=== PATIENT | male | born 1980 | race Two or more races ===

== ENCOUNTER 2023-11-09 12:13 | Inpatient (IN) | payer OTHER ==
[~2023-11-09] VITALS: Ht 152.4 cm; Wt 108.9 kg
--- NOTE | 2023-11-09 12:53 | NUR ---
PACIENTE ALERTA Y ORIENTADO X3. REFIERE VENIR ENDURECIMIENTO EN GLUTEO DERECHO Y DOLOR DESDE HACE OCHO APONTE. LO ESTABAN TRATANDO BRYNN PARA HEMORROIDES. PACIENTE PRESENTA ABSCESO EN EL GLUTEO DERECHO, AREA CALIENTE AL TACTO Y ENDURECIDA.
[2023-11-09] MEDS ORDERED: PIPERACILLIN/TAZOBACTAM SODIUM 3.375 GM in 0.9 % SODIUM CHLORIDE 100 ML IV SCH (13:31)
[2023-11-09] MEDS ORDERED: 0.9 % SODIUM CHLORIDE 1,000 ML IV SCH ×2 (13:45→20:00)
[2023-11-09] MEDS ORDERED: KETOROLAC TROMETHAMINE 30 MG VIAL IV ONE (13:45)
--- NOTE | 2023-11-09 14:13 | NUR ---
SE REALIZA VENOPUNCION PARA DEJAR VENA PATENTE Y COLECTAR MUESTRAS DE LAB.
[2023-11-09 14:24] LABS: INR 1.17; PARTIAL THROMBOPLASTIN TIME 29.8 SECONDS (22.0-34.0)
[2023-11-09 14:27] LABS: PROTHROMBIN TIME 12.1 SECONDS (9.0-11.5)
[2023-11-09 14:29] LABS: HEMOGLOBIN 12.1 g/dL (13-16.00); MEAN CELL VOLUME 86.5 fL (80.0-100.00); MEAN CORPUSCULAR HGB CONC 33.6 g/dl (32.0-36.0); PLATELET COUNT 383 K/uL (150-450); RED BLOOD COUNT 4.16 M/uL (4.00-6.00); RED CELL DISTRIBUTION WIDTH 14.7 % (11.5-14.5)
[2023-11-09 14:30] LABS: ALBUMIN 2.8 gm/dL (3.4-5.0); BILIRUBIN TOTAL 1.08 mg/dL (0.3-1.2); CREATININE SERUM 1.55 mg/dL (0.70-1.30); GFR 48.95; GLOBULINA 3.4 G/DL (2.4-3.5); POTASSIUM 4.44 mEq/L (3.5-5.1); TOTAL PROTEIN 6.2 gm/dL (6.4-8.2)
--- NOTE | 2023-11-09 15:02 | NUR ---
SE RECIBE PTE ALERTA Y ORIENTADO X3. EN MADDI BAJA CON BARANDAS ELEVADAS POR SEGURIDAD. CANALIZACION PATENTE, LIBBY DE EDEMA Y ERITEMA, RECIBIENDO IV FLUIDS. PEND CT
[2023-11-09] MEDS ORDERED: MORPHINE SULFATE 4 MG/ML VIAL IV ONE (16:00)
[2023-11-09] MEDS ORDERED: VANCOMYCIN HCL 1,000 MG VIAL IV ONE (18:00)
[2023-11-09] MEDS ORDERED: MEROPENEM 500 MG/VIAL VIAL IV SCH (20:00)
[2023-11-09] MEDS ORDERED: 0.9 % SODIUM CHLORIDE 500 ML IV ONE (20:00)
[2023-11-09] MEDS ORDERED: KETOROLAC TROMETHAMINE 30 MG VIAL IU ONE (20:00)
[2023-11-09] MEDS ORDERED: ACETAMINOPHEN 500 MG GEL..CAP PO PRN (20:00)
[2023-11-09] MEDS ORDERED: ONDANSETRON HCL 4 MG in 0.9 % SODIUM CHLORIDE 50 ML IV PRN (20:00)
[2023-11-09] MEDS ORDERED: MEPERIDINE HCL/PF 25 MG/ML VIAL IM PRN (20:00)
[2023-11-09 21:20] LABS: ABG PH 7.427 (7.35-7.45); ABG pCO2 33.2 mmHg (35-45); BASE EXCESS -2.1 mmol/l; BICARBONATE 21.4 mmol/l (23-25); SaO2 95.4 %; Tco2 22.4 mmol/l; o2 21 %
[2023-11-09 21:21] LABS: allen test SATISFACTORY; puncture site RADIAL RIGHT
[2023-11-09 21:33] LABS: MAGNESIUM 2.2 mg/dL (1.8-2.4)
[2023-11-09 23:05] LABS: PH,URINE 5.5 (5.0-8.0); URINE APPEARANCE Clear; URINE BILIRRUBIN Small (NEGATIVE); URINE BLOOD Negative; URINE COLOR Dark Yellow; URINE GLUCOSE Negative (NEGATIVE); URINE LEUKOCYTE Negative; URINE NITRATE Negative; URINE PROTEIN 30 (NEGATIVE)
[2023-11-09 23:09] LABS: URINE EPITHELIAL CELLS 12.3 uL (0.0-38.8); URINE RBC 23.4 uL (0.0-20.8); URINE WBC 8.6 uL (0.0-23.2)
[2023-11-10] MEDS ORDERED: VANCOMYCIN HCL 1,000 MG VIAL IV SCH (06:00)
[2023-11-10] MEDS ORDERED: FAMOTIDINE/PF 20 MG in 0.9 % SODIUM CHLORIDE 8 ML IV PUSH SCH (09:00)
[2023-11-10] MEDS ORDERED: AA 4.25%/CAL/LYTES/DEXT 5% 1,000 ML PERIFERAL SCH (17:00)
[2023-11-10] MEDS ORDERED: VANCOMYCIN HCL 5 MG/ML REDILUIDO IV SCH (17:00)
[2023-11-10] MEDS ORDERED: MORPHINE SULFATE 4 MG/ML CARTRIDGE IV PRN (19:15)
[2023-11-10 20:42] LABS: CALCIUM 8.3 mg/dL (8.5-10.1); CHOL HDL RATIO 11.5 (0-5.0); CREATININE SERUM 1.1 mg/dL (0.70-1.30); GFR 72.72; POTASSIUM 4.22 mEq/L (3.5-5.1)
[2023-11-11 07:21] LABS: HEMATOCRIT 33.3 % (39.0-48.0); MEAN CELL VOLUME 86.5 fL (80.0-100.00); PLATELET COUNT 354 K/uL (150-450); RED BLOOD COUNT 3.85 M/uL (4.00-6.00); RED CELL DISTRIBUTION WIDTH 15.2 % (11.5-14.5)
[2023-11-11 07:22] LABS: ALBUMIN 1.9 gm/dL (3.4-5.0); BILIRUBIN TOTAL 0.64 mg/dL (0.3-1.2); C-REACTIVE PROTEIN 30.8 MG/DL (0.00-0.29); CREATININE SERUM 1.01 mg/dL (0.70-1.30); GFR 80.25; MAGNESIUM 2.3 mg/dL (1.8-2.4); PHOSPHOROUS 2.6 mg/dL (2.5-4.9); POTASSIUM 4.53 mEq/L (3.5-5.1); TOTAL PROTEIN 4.9 gm/dL (6.4-8.2)
[2023-11-11 07:28] LABS: MEAN CORPUSCULAR HEMOGLOBIN 28.5 pg (27.00-32.0)
[2023-11-11] MEDS ORDERED: DIBUCAINE 15 GM OINT..GM. TUBE RECTAL ONE (13:15)
[2023-11-11] MEDS ORDERED: LIDOCAINE HCL 1%/EPINEPHRINE 20ML VIAL IJ ONE (13:15)
[2023-11-11] MEDS ORDERED: BUPIVACAINE HCL 30 ML VIAL IJ ONE (13:15)
[2023-11-11] MEDS ORDERED: HEMOSTATIC MATRIX 1 KIT KIT TOP ONE (13:15)
[2023-11-11] MEDS ORDERED: POVIDONE-IODINE 118 ML BOTT TOP ONE (13:15)
[2023-11-11] MEDS ORDERED: FAMOTIDINE/PF 20 MG/2 ML VIAL ONE (16:40)
[2023-11-11] MEDS ORDERED: FAMOTIDINE/PF 20 MG in 0.9 % SODIUM CHLORIDE 8 ML IV PUSH SCH (17:00)
[2023-11-12] MEDS ORDERED: LINEZOLID 600 MG TABLET PO SCH (09:00)
[2023-11-12 18:44] LABS: HEMATOCRIT 34.6 % (39.0-48.0); HEMOGLOBIN 11.5 g/dL (13-16.00); MEAN CELL VOLUME 87.4 fL (80.0-100.00); MEAN CORPUSCULAR HEMOGLOBIN 29.1 pg (27.00-32.0); MEAN CORPUSCULAR HGB CONC 33.3 g/dl (32.0-36.0); PLATELET COUNT 356 K/uL (150-450); RED BLOOD COUNT 3.96 M/uL (4.00-6.00); RED CELL DISTRIBUTION WIDTH 15.4 % (11.5-14.5)
[2023-11-12] MEDS ORDERED: MORPHINE SULFATE 4 MG/ML CARTRIDGE IV PRN (20:30)
[2023-11-13 06:12] LABS: HEMATOCRIT 35.6 % (39.0-48.0); HEMOGLOBIN 11.7 g/dL (13-16.00); MEAN CELL VOLUME 87.6 fL (80.0-100.00); MEAN CORPUSCULAR HEMOGLOBIN 28.8 pg (27.00-32.0); MEAN CORPUSCULAR HGB CONC 32.9 g/dl (32.0-36.0); PLATELET COUNT 388 K/uL (150-450); RED BLOOD COUNT 4.06 M/uL (4.00-6.00); RED CELL DISTRIBUTION WIDTH 15.3 % (11.5-14.5)
[2023-11-13] MEDS ORDERED: KETOROLAC TROMETHAMINE 30 MG VIAL IV SCH (12:06)
[2023-11-13] MEDS ORDERED: CIPROFLOXACIN IN 5 % DEXTROSE 200 ML IV SCH (17:00)
[2023-11-13] MEDS ORDERED: METRONIDAZOLE/SODIUM CHLORIDE 100 ML IV SCH (17:00)
[2023-11-13 18:33] LABS: CALCIUM 8.8 mg/dL (8.5-10.1); CHOL HDL RATIO 5.2 (0-5.0); CREATININE SERUM 0.89 mg/dL (0.70-1.30); GFR 92.86; POTASSIUM 4.04 mEq/L (3.5-5.1)
[2023-11-13 21:53] LABS: BILIRUBIN TOTAL 0.36 mg/dL (0.3-1.2); CALCIUM 7.8 mg/dL (8.5-10.1); CREATININE SERUM 0.82 mg/dL (0.70-1.30); GFR 102.06; GLOBULINA 3.3 G/DL (2.4-3.5); PHOSPHOROUS 2.8 mg/dL (2.5-4.9); POTASSIUM 3.76 mEq/L (3.5-5.1); TOTAL PROTEIN 5.3 gm/dL (6.4-8.2)
[2023-11-13 21:55] LABS: CALCIUM 7.9 mg/dL (8.5-10.1); CHOL HDL RATIO 11.7 (0-5.0); CREATININE SERUM 0.81 mg/dL (0.70-1.30); GFR 103.52; POTASSIUM 3.89 mEq/L (3.5-5.1)
[2023-11-13 21:56] LABS: C-REACTIVE PROTEIN 10.3 MG/DL (0.00-0.29)
[2023-11-16 06:52] LABS: HEMATOCRIT 37.5 % (39.0-48.0); HEMOGLOBIN 12.8 g/dL (13-16.00); MEAN CELL VOLUME 85.6 fL (80.0-100.00); MEAN CORPUSCULAR HEMOGLOBIN 29.1 pg (27.00-32.0); PLATELET COUNT 513 K/uL (150-450); RED BLOOD COUNT 4.38 M/uL (4.00-6.00); RED CELL DISTRIBUTION WIDTH 15.3 % (11.5-14.5)
[2023-11-16 07:16] LABS: CALCIUM 8.4 mg/dL (8.5-10.1); CREATININE SERUM 1.04 mg/dL (0.70-1.30); GFR 77.58; POTASSIUM 5.19 mEq/L (3.5-5.1)
== END 2023-11-16 13:56 | disposition home or self-care (01) | DRG 872 ==
LOC: ER 12:13 → MEDJ 20:20
PROVIDERS: Colon & Rectal Surgery; General Practice; Internal Medicine Infectious Disease; ADMIT Internal Medicine; ATTEND Internal Medicine
PROC: BW21YZZ Computerized Tomography (CT Scan) of Abdomen and Pelvis using Other Contrast (ICD-10-PCS; 2023-11-09)
PROC: 0J9B0ZX Drainage of Perineum Subcutaneous Tissue and Fascia, Open Approach, Diagnostic (ICD-10-PCS; principal; 2023-11-11 13:45)
DX: A41.9 Sepsis, unspecified organism (principal); K61.0 Anal abscess; L03.315 Cellulitis of perineum; N17.9 Acute kidney failure, unspecified; B96.89 Other specified bacterial agents as the cause of diseases classified elsewhere; B96.20 Unspecified Escherichia coli [E. coli] as the cause of diseases classified elsewhere; I10 Essential (primary) hypertension

== ENCOUNTER 2024-09-13 18:55 | Emergency (ER) | payer OTHER ==
[~2024-09-13] VITALS: Ht 190.5 cm; Wt 117.9 kg
[2024-09-13] MEDS ORDERED: CEFTRIAXONE SODIUM 1,000 MG VIAL IM ONE (20:00)
[2024-09-13] MEDS ORDERED: TAMSULOSIN HCL 0.4 MG CAP PO ONE ×2 (20:00→20:38)
[2024-09-13] MEDS ORDERED: KETOROLAC TROMETHAMINE 60 MG VIAL IM ONE ×2 (20:00→20:38)
[2024-09-13] MEDS ORDERED: LIDOCAINE HCL 1% 10ML VIAL ONE (20:38)
[2024-09-13] MEDS ORDERED: CEFTRIAXONE SODIUM 1,000 MG VIAL ONE (20:38)
[2024-09-13 21:42] LABS: PH,URINE 5.5 (5.0-8.0); URINE APPEARANCE Clear; URINE BILIRRUBIN Negative (NEGATIVE); URINE BLOOD Small; URINE COLOR Yellow; URINE GLUCOSE Negative (NEGATIVE); URINE KETONE Negative (NEGATIVE); URINE LEUKOCYTE Negative; URINE NITRATE Negative; URINE PROTEIN Negative (NEGATIVE); URINE UROBILINOGEN 0.2 E.U./dl
[2024-09-13 21:42] LABS: HEMATOCRIT 44.1 % (39.0-48.0); HEMOGLOBIN 15.1 g/dL (13-16.00); MEAN CELL VOLUME 86.8 fL (80.0-100.00); MEAN CORPUSCULAR HEMOGLOBIN 29.7 pg (27.00-32.0); MEAN CORPUSCULAR HGB CONC 34.2 g/dl (32.0-36.0); PLATELET COUNT 272 K/uL (150-450); RED BLOOD COUNT 5.07 M/uL (4.00-6.00)
[2024-09-13 21:45] LABS: URINE BACTERIA 6.1 uL (0.0-1933)
[2024-09-13 22:12] LABS: ALBUMIN 3.8 gm/dL (3.4-5.0); BILIRUBIN TOTAL 0.39 mg/dL (0.3-1.2); CREATININE SERUM 1.15 mg/dL (0.70-1.30); GFR 68.77; GLOBULINA 3.1 G/DL (2.4-3.5); POTASSIUM 4.47 mEq/L (3.5-5.1); TOTAL PROTEIN 6.9 gm/dL (6.4-8.2)
== END 2024-09-13 22:44 | disposition home or self-care (01) ==
LOC: ER 18:57
PROVIDERS: General Practice
DX: R31.9 Hematuria, unspecified (principal); I10 Essential (primary) hypertension